=== PATIENT | female | born 2000 | race American Indian/Alaskan Native ===

== ENCOUNTER 2021-06-14 16:06 | Outpatient (CLI) | payer MEDICAID | END 2021-06-14 16:07 | disposition home or self-care (01) | LOC: LAB 16:06 | PROVIDERS: ATTEND Obstetrics & Gynecology | DX: O26.893 Other specified pregnancy related conditions, third trimester (principal); Z67.41 Type O blood, Rh negative; Z3A.28 28 weeks gestation of pregnancy | CPT/HCPCS: 86850; 86900; 86901; 96372; J2790 ==

== ENCOUNTER 2021-08-18 05:08 | Outpatient (CLI) | payer MEDICAID ==
[2021-08-18 06:09] VITALS: BP 125/70
--- NOTE | 2021-08-18 07:30 | Ultrasound Report ---
ULTRASOUND OBSTETRIC LIMITED INDICATION / CLINICAL INFORMATION: Labor pain, 37 weeks. Clinical Gestational Age (GA) in weeks, days: 37 weeks 1 day TECHNIQUE: Transabdominal. COMPARISON: Limited OB ultrasound 08/03/2021 FINDINGS: HEART RATE (beats per minute): 148 AMNIOTIC FLUID INDEX (cm) = 18.0 (normal = 7-24 cm) PRESENTATION: Cephalic. Biparietal Diameter = 9.3 cm = 38, 0 weeks, days Head Circumference = 33.8 cm = 38, 6 weeks, days Abdominal Circumference = 31.6 cm = 35, 4 weeks, days Femur Length = 6.9 cm = 35, 3 weeks, days Average Ultrasound Age (AUA) = 37, 0 weeks, days Anterior placenta, grade 2. Estimated weight 2855 g with growth percentile at 30%. ADDITIONAL FINDINGS: None. IMPRESSION: 1. Single live intrauterine fetus at 37 weeks 0 days. Estimated weight 2855 g. Signer Name: Lavell Florez II, MD Signed: 08/18/2021 7:25 AM Workstation Name: [id number]
[2021-08-18] MEDS ORDERED: MORPHINE 2 MG/1 ML INJ IM ONE (07:57)
[2021-08-18] MEDS ORDERED: MORPHINE 10 MG/1 ML INJ IM ONE (09:00)
== END 2021-08-18 08:51 | disposition home or self-care (01) ==
LOC: TRG 05:08 → APU 05:09 → TRG 08:51
PROVIDERS: ATTEND Obstetrics & Gynecology Gynecology
DX: Z34.93 Encounter for supervision of normal pregnancy, unspecified, third trimester (principal); Z3A.37 37 weeks gestation of pregnancy
CPT/HCPCS: 76816; Q0177

== ENCOUNTER 2021-09-08 01:11 | Inpatient (IN) | payer MEDICAID ==
[2021-09-08] MEDS ORDERED: LACTATED RINGERS 1,000 ML ONE (01:54)
[2021-09-08] MEDS ORDERED: MINERAL OIL 30 ML ORAL LIQD PO PRN (03:15)
[2021-09-08] MEDS ORDERED: ePHEDrine SULFATE 50 MG/1 ML INJ IV PRN ×2 (03:15→13:00)
[2021-09-08] MEDS ORDERED: OXYTOCIN 10 UNIT/1 ML INJ IM PRN (03:15)
[2021-09-08] MEDS ORDERED: LIDOCAINE (2%) 20 MG/1 ML VIAL 20 ML MDV INFILTRATI ONE (03:15)
[2021-09-08] MEDS ORDERED: LOPERAMIDE 2 MG CAP PO PRN (03:15)
[2021-09-08] MEDS ORDERED: miSOPROStol 200 MCG TAB PR PRN (03:15)
[2021-09-08] MEDS ORDERED: CARBOPROST TROMETHAMINE 250 MCG/1 ML INJ IM PRN (03:15)
[2021-09-08] MEDS ORDERED: METHYLERGONOVINE MALEATE 0.2 MG/ML VIAL IM PRN (03:15)
[2021-09-08] MEDS ORDERED: TERBUTALINE 1 MG/1 ML INJ SUB-Q PRN ×2 (03:15→05:10)
[2021-09-08 03:30] LABS: Hematocrit 34.5 % (30.3-42.9); Hemoglobin 11.6 gm/dl (10.1-14.3); Mean Corpuscular HGB Conc 34 % (30-34); Mean Corpuscular Volume 79 fl (79-97); Platelet Count 235 K/mm3 (140-440); Red Blood Count 4.38 M/mm3 (3.65-5.03); Red Cell Distribution Width 18.7 % (13.2-15.2)
[2021-09-08] MEDS ORDERED: OXYTOCIN DRIP 30 UNITS/500 ML BAG IV SCH ×3 (04:00→11:00)
[2021-09-08] MEDS ORDERED: BUTORPHANOL 2 MG/1 ML INJ IV PRN ×3 (04:35→05:10)
[2021-09-08] MEDS ORDERED: fentaNYL 100 MCG/2 ML INJ IV PRN (04:35)
[2021-09-08] MEDS ORDERED: ACETAMINOPHEN 325 MG TAB PO PRN ×2 (04:35→05:44)
[2021-09-08] MEDS ORDERED: LACTATED RINGERS 1,000 ML IV SCH (05:15)
[2021-09-08] MEDS ORDERED: fentaNYL 100 MCG/2 ML INJ ONE (05:29)
--- NOTE | 2021-09-08 05:31 | History and Physical Report ---
History of Present Illness Date of examination: 09/08/21 Date of admission: 09/08/2021 Chief complaint: Contractions History of present illness: 21 y/o at 40-1/7 weeks presents to OBT reporting CTX q 2-3 min that are regular and painful. No VB or LOF. Good FM. In OBT, cervix was 2/thick/-4 --> 3/50%/-4. She declines therapeutic rest with morphine sulfate IM. She is admitted to L&D in early labor for augmentation. Past History Past Medical History: no pertinent history Past Surgical History: appendectomy Family/Genetic History: none Social history: no significant social history - Obstetrical History Expected Date of Delivery: 09/07/21 Actual Gestation: 40 Week(s) 1 Day(s) : 1 Para: 0 Hx # Term Pregnancies: 0 Medications and Allergies Allergies Allergy/AdvReac Type Severity Reaction Status Date / Time No Known Allergies Allergy Verified 08/03/21 13:35 Home Medications Medication Instructions Recorded Confirmed Last Taken Type Nitrofurantoin [place]/M-Cryst 100 mg PO Q12HR 7 Days #14 capsule 08/03/21 Unknown Rx [Macrobid CAP] Active Meds: Active Medications Butorphanol Tartrate (Butorphanol 2 Mg/1 Ml Inj) 2 mg IV Q2H PRN PRN Reason: Pain , Severe (7-10) Butorphanol Tartrate (Butorphanol 2 Mg/1 Ml Inj) 1 mg IV Q2H PRN PRN Reason: Pain, Moderate(4-6) LABOR PAIN Carboprost Tromethamine (Carboprost Tromethamine 250 Mcg/1 Ml Inj) 250 mcg IM ONCE PRN PRN Reason: Uterine Bleeding Ephedrine Sulfate (Ephedrine Sulfate 50 Mg/1 Ml Inj) 10 mg IV Q2M PRN PRN Reason: Hypotension Fentanyl (Fentanyl 100 Mcg/2 Ml Inj) 100 mcg IV Q2H PRN PRN Reason: Pain,Severe (7-10) LABOR PAIN Oxytocin/Sodium Chloride (Pitocin/Ns 30 Unit/500ml) 30 units in 500 mls @ 2 mls/hr IV TITR DANIEL; Protocol Lactated Ringer's (Lactated Ringers) 1,000 mls @ 125 mls/hr IV DIRECT DANIEL Oxytocin/Sodium Chloride (Pitocin/Ns 30 Unit/500ml) 30 units in 500 mls @ 40 mls/hr IV TITR DANIEL; Protocol Ampicillin Sodium (Ampicillin/Ns 1 Gm/50 Ml) 1 gm in 50 mls @ 100 mls/hr IV Q4H DANIEL; Protocol Loperamide HCl (Loperamide 2 Mg Cap) 2 mg PO ONCE PRN PRN Reason: give with Hemabate Methylergonovine Maleate (Methylergonovine Maleate 0.2 Mg/Ml Vial) 0.2 mg IM ONCE PRN PRN Reason: Uterine Bleeding Mineral Oil (Mineral Oil 30 Ml Oral Liqd) 30 ml PO QHS PRN PRN Reason: Constipation Misoprostol (Misoprostol 200 Mcg Tab) 800 mcg NH ONCE PRN PRN Reason: Uterine Bleeding Oxytocin (Oxytocin 10 Unit/1 Ml Inj) 10 unit IM ONCE PRN PRN Reason: Uterine Bleeding Terbutaline Sulfate (Terbutaline 1 Mg/1 Ml Inj) 0.25 mg SUB-Q ONCE PRN PRN Reason: Hyperstimulation/Hypertonicity Review of Systems All systems: negative - Vital Signs Vital signs: Vital Signs Pulse Pulse Ox 82 100 09/08/21 01:40 09/08/21 01:40 Temp Pulse Resp BP Pulse Ox 98.1 F 90 18 111/59 100 09/08/21 01:41 09/08/21 05:20 09/08/21 01:41 09/08/21 02:40 09/08/21 05:20 - Physical Exam Breasts: Positive: normal Cardiovascular: Regular rate Lungs: Positive: Normal air movement Abdomen: Positive: normal appearance Genitourinary (Female): Positive: normal external genitalia Vulva: both: normal Vagina: Positive: normal moisture Uterus: Positive: normal size Adnexa: both: normal Anus/Rectum: Positive: normal perianal skin Deep Tendon Reflex Grade: Normal +2 - Obstetrical FHR: category 1 Uterine Contraction Monitor Mode: External Cervical Dilatation: 3 Cervical Effacement Percentage: 50 station: -4 Uterine Contraction Frequency (min): 3 Uterine Contraction Pattern: Regular Uterine Contraction Intensity: Moderate Results Result Diagrams: 09/08/21 02:25 Abnormal lab results 09/08/21 Range/Units 02:25 WBC 12.9 H (4.5-11.0) K/mm3 MCH 27 L (28-32) pg RDW 18.7 H (13.2-15.2) % All other labs normal. Assessment and Plan - Patient Problems (1) 40 weeks gestation of Current Visit: Yes Status: Acute Plan to address problem: care is up-to-date. GBS (+). (2) Postmaturity , 40-42 weeks gestation Current Visit: Yes Status: Acute Plan to address problem: Admit to L&D. Augment labor. (3) Group B Streptococcus carrier, +RV culture, currently Current Visit: Yes Status: Acute Plan to address problem: Rx PCN per 2010 CDC MMWR recommendations. (4) Labor abnormality, antepartum Current Visit: Yes Status: Acute Plan to address problem: Admit to L&D. Augment with Pitocin. AROM after antibiotics.
[2021-09-08] MEDS ORDERED: NalbUPHINE 10 MG/1 ML INJ IV PRN (05:44)
[2021-09-08] MEDS: fentaNYL 100 MCG/2 ML INJ IV PRN ×3 (05:54→12:40)
[2021-09-08] MEDS ORDERED: PENICILLIN G POTASSIUM 5 MIL.UNITS in SODIUM CHLORIDE 0.9% 50 ML IV ONE (06:00)
--- NOTE | 2021-09-08 06:29 | Ultrasound Report ---
US OB follow up INDICATION / CLINICAL INFORMATION: presentation, EFW, DANYA COMPARISON: Follow-up OB ultrasound 08/18/2021 TECHNIQUE: Using a transcutaneous probe, multiple grayscale, color Doppler, and spectral Doppler imag es of the uterus and fetus were captured and stored. FINDINGS: Clinical gestational age 40 weeks 1 day. Single cephalic fetus heart rate 137 bpm. Amniotic fluid index within normal limits measuring 12 cm. Biparietal Diameter = 10.11 cm = 41, 5 weeks, days Head Circumference = 33.08 cm = 37, 5 weeks, days Abdominal Circumference = 33.8 cm = 37, 5 weeks, days Femur Length = 7.68 cm = 39, 2 weeks, days Average Ultrasound Age (AUA) = weeks, days Estimated weight = 2538 g. IMPRESSION: 1. Single fetus heart rate 137 bpm with normal DANYA and estimated weight is 2538 g. Signer Name: Lavell Florez II, MD Signed: 09/08/2021 6:24 AM Workstation Name: [id number]
[2021-09-08] MEDS ORDERED: ONDANSETRON 4 MG/2 ML INJ ONE (08:01)
[2021-09-08] MEDS ORDERED: ONDANSETRON 4 MG/2 ML INJ IV PRN (08:30)
--- NOTE | 2021-09-08 09:58 | Event Note ---
Date: 09/08/21 pt evaluated with FHR not recording well on monitor. pt just voided and AROM done using FSE, meconium fluid moderate amount and same thin, pelvic /-2 and bulging bag with ctx down to +1; AROM done with FSE after hook failed. Pt just received IV pain med and declines epidural at this time. Will augment with pitocin and adjust PCN dose to 3mu every 4hr instead of 2.5. Expect . FHR category I now. Ctx every 3mins
[2021-09-08] MEDS ORDERED: AMPICILLIN/NS 1 GM/50 ML 1 GM/50 ML BAG IV SCH (10:00)
[2021-09-08] MEDS ORDERED: PENICILLIN G POTASSIUM 2.5 MIL.UNITS in SODIUM CHLORIDE 0.9% 50 ML IV SCH (10:00)
--- NOTE | 2021-09-08 12:50 | Anesthesia Consultation ---
Anesthesia Consult and Med Hx Date of service: 09/08/21 - Airway Anesthetic Teeth Evaluation: Good ROM Head & Neck: Adequate Mental/Hyoid Distance: Adequate Mallampati Class: Class II Intubation Access Assessment: Probably Good - Pulmonary Exam CTA: Yes - Cardiac Exam Cardiac Exam: RRR - Pre-Operative Health Status ASA Pre-Surgery Classification: ASA2 Proposed Anesthetic Plan: Epidural - Pulmonary Hx Asthma: No COPD: No Hx Pneumonia: No - Cardiovascular System Hx Hypertension: No - Central Nervous System Hx Seizures: No Hx Psychiatric Problems: No - Endocrine Hx Renal Disease: No Hx End Stage Renal Disease: No Hx Hypothyroidism: No Hx Hyperthyroidism: No - Hematic Hx Anemia: No Hx Sickle Cell Disease: No - Other Systems Hx Alcohol Use: No
[2021-09-08] MEDS: LACTATED RINGERS 1,000 ML IV SCH ×2 (12:51→22:49)
[2021-09-08] MEDS ORDERED: NALOXONE 2 MG/2 ML INJ IV PRN (13:00)
--- NOTE | 2021-09-08 13:19 | Progress Note ---
Labor Epidural - Labor Epidural Start Time: 13:08 Stop Time: 13:15 Performed by:: MARTA NUGENT Procedure: Patient is requesting epidural for labor pain. H&P, and labs reviewed. Procedure explained, questions answered, consent obtained. Patient in sitting position with blood pressure cuff and pulse ox on and working. Timeout performed immediately before start of procedure. Sterile Chloraprep prep/drape. 3 mL 1% lidocaine skin wheal at L[3]-L[4]. 17-gauge tuohy epidural needle advanced to [id number] with saline at [7] cm. 25-gauge spinal needle advanced until clear, free-flowing CSF. Intrathecal dexmedetomidine [5] mcg administered and needle removed. Epidural catheter advanced to [12] cm, negative aspiration for blood and csf, negative test dose 3 ml 1.5% lidocaine with epinephrine. Sterile sponge and tegaderm applied, followed by tape reinforcement. Patient tolerated procedure well. SRNA
[2021-09-08] MEDS: fentaNYL-BUPIV 2 MCG/ML-0.125% 200 MCG/100 ML BAG EPIDURAL SCH ×2 (13:33→21:09)
[2021-09-08] MEDS: PENICILLIN G POTASSIUM 3 MIL.UNITS in SODIUM CHLORIDE 0.9% 50 ML IV SCH ×2 (16:01→20:03)
--- NOTE | 2021-09-08 18:01 | Event Note ---
Date: 09/08/21 SVE /-1. IUPC inserted without difficulty. Category 1 FHR tracing. Patient comfortable with epidural.
--- NOTE | 2021-09-08 21:43 | Event Note ---
Date: 09/08/21 SVE 7/-1, OP position. Patient positioned in right lateral position.
[2021-09-08] MEDS ORDERED: BUPIVACAINE/PF (0.25%) 2.5 MG/ML 10 ML VIAL INFILTRATI ONE (21:46)
--- NOTE | 2021-09-08 22:29 | Event Note ---
Date: 09/08/21 Amnioinfusion ordered for variable FHR decelerations. Normal FHR baseline rate and moderate variability. Patient positioned in lateral position, Pitocin turned off, and oxygen applied per face mask at 10 LPM.
[2021-09-08] MEDS ORDERED: SODIUM CHLORIDE 0.9% 1000 ML 1,000 ML VG SCH (22:30)
[2021-09-09] MEDS ORDERED: MINERAL OIL 30 ML ORAL LIQD ONE ×2 (00:23→01:39)
[2021-09-09] MEDS ORDERED: HYDROcodone/ACETAMINOPHEN 5-325 MG TAB PO PRN ×2 (04:00→06:05)
[2021-09-09] MEDS ORDERED: IBUPROFEN 800 MG TAB PO PRN (04:00)
[2021-09-09] MEDS ORDERED: diphenhydrAMINE 25 MG CAP PO PRN (06:05)
[2021-09-09] MEDS ORDERED: MAGNESIUM HYDROXIDE (MOM) ORAL LIQD UDC PO PRN (06:05)
[2021-09-09] MEDS ORDERED: LANOLIN/ZINC/DIMETHICONE (LANSINOH) 7 GM TP PRN (06:05)
--- NOTE | 2021-09-09 06:08 | Procedure Note ---
OB Delivery Note - Delivery Date of Delivery: 09/09/21 Surgeon: NORA GONG Estimated blood loss: 500cc - Vaginal Delivery presentation: vertex Delivery position: OA Intrapartum events: meconium Delivery induction: oxytocin Delivery augmentation: rupture of membranes Delivery monitor: external FHT, external uterine, internal uterine Route of delivery: Delivery placenta: spontaneous Delivery cord: nuchal cord, 3 umbilical vessels Episiotomy: none Delivery laceration: 2nd degree Delivery repair: vicryl Anesthesia: epidural Delivery comments: Spontaneous vaginal delivery at 01:44 of liveborn female infant weighing 3.28 kg over second degree perineal laceration with apgars of 8/9. Epidural anesthesia. Thin meconium stained amniotic fluid; NICU present at . was atraumatic. Nuchal cord times 1, manually reduced. Baby placed skin to skin with mom immediately after delivery. Baby suctioned with bulb syringe and dried with warm blankets. Spontaneous cry and respirations. 3 vessel cord double clamped and cut and baby taken to radiant warmer for further suctioning. Cord blood obtained. Spontaneous delivery of intact placenta and membranes at 01:46. Pitocin to IV fluids after delivery of placenta. Fundus firm and midline at umbilicus. EBL 500 cc. Second degree perineal laceration and vaginal laceration repaired with 2-0 vicryl in usual sterile fashion. No other lacerations noted. Vaginal sweep negative. Sponge count correct. Mother and baby stable in birthing room.
[2021-09-09] MEDS: WITCH HAZEL/ GLYCERIN PAD TP PRN (06:49)
[2021-09-09] MEDS ORDERED: IBUPROFEN 800 MG TAB PO SCH (07:00)
[2021-09-09] MEDS: DOCUSATE SODIUM 100 MG CAP PO SCH ×2 (09:19→09:22)
[2021-09-09] MEDS: oxyCODONE /ACETAMINOPHEN 5-325MG TAB PO PRN ×3 (09:20→20:23)
[2021-09-09] MEDS ORDERED: SODIUM CHLORIDE 0.9% 1000 ML 1,000 ML IV SCH (09:45)
--- NOTE | 2021-09-09 09:49 | Post Anesthesia Evaluation ---
- Post Anesthesia Evaluation Patient Participated: Yes Airway Patent: Yes Stable Respiratory Function: Yes Nausea/Vomiting: No Temp > 96.8F: Yes Pain Manageable: Yes Adequeate Hydration: Yes Anesthesia Complications: No Block Receding Appropriately: Yes
[2021-09-09] MEDS ORDERED: KETOROLAC 30 MG/1 ML INJ IV ONE (16:27)
[2021-09-09 17:04] LABS: Hemoglobin 10.9 gm/dl (10.1-14.3); Mean Corpuscular HGB Conc 33 % (30-34); Mean Corpuscular Volume 79 fl (79-97); Platelet Count 218 K/mm3 (140-440); Red Blood Count 4.19 M/mm3 (3.65-5.03); Red Cell Distribution Width 18.9 % (13.2-15.2)
[2021-09-10] MEDS: WITCH HAZEL/ GLYCERIN PAD TP PRN (00:07)
[2021-09-10] MEDS: DOCUSATE SODIUM 100 MG CAP PO SCH ×3 (00:07→23:12)
[2021-09-10] MEDS: oxyCODONE /ACETAMINOPHEN 5-325MG TAB PO PRN ×5 (01:26→23:12)
--- NOTE | 2021-09-10 10:46 | Progress Note ---
Assessment and Plan A: day 1 S/P . P: Repeat CBC is in for noon today. If CBC is OK, plan is to discharge patient home later this evening or tomorrow morning. Iron supplement ordered. Patient to ambulate. Subjective - Subjective Date of service: 09/10/21 Principal diagnosis: day 1 S/P Patient reports: appetite normal, voiding normally, pain well controlled, flatus, ambulating normally, no dizzy ambulation, no nauseated [place]: doing well Objective - Vital Signs Latest vital signs: Vital Signs Temp Pulse Resp BP BP Pulse Ox Pulse Ox 09/10/21 08:53 96 09/10/21 07:36 98.4 F 73 18 126/75 96 09/10/21 03:26 18 09/10/21 01:26 18 09/10/21 01:10 98.3 F 85 16 119/77 100 09/09/21 21:23 18 09/09/21 20:23 20 09/09/21 20:00 100 09/09/21 15:20 98.2 F 93 H 18 116/75 98 09/09/21 11:16 98.2 F 86 18 115/55 97 Intake and Output 09/09/21 09/10/21 09/10/21 22:59 07:59 15:59 Intake Total Balance Intake: IV ceFAZolin 2 GM In NaCl 0. 9% 100 ml @ 200 mls/hr IV Q8H [facility] Rx#:[id number] Oral Intake, Free Water Other: Total, Intake Amount # Voids Void - Exam Cardiovascular: Present: Regular rate, No murmurs Lungs: Present: Clear to auscultation Abdomen: Present: normal appearance, soft. Absent: distention, tenderness, guarding, rigidity Uterus: Present: normal, firm, fundal height below umbilicus (fundus firm and midline at 1 FB below umbilicus). Absent: bogginess, tenderness Extremities: Absent: tenderness, edema - Labs Labs: Abnormal lab results 09/09/21 Range/Units 16:36 WBC 15.8 H (4.5-11.0) K/mm3 MCH 26 L (28-32) pg RDW 18.9 H (13.2-15.2) %
[2021-09-10] MEDS: FERROUS SULFATE 325 MG TAB PO SCH (13:42)
[2021-09-10 16:14] LABS: Basophils % (Auto) 0.4 % (0.0-1.8); Eosinophils # (Auto) 0.3 K/mm3 (0.0-0.4); Eosinophils % (Auto) 2.9 % (0.0-4.3); Hematocrit 32.2 % (30.3-42.9); Hemoglobin 10.2 gm/dl (10.1-14.3); Lymphocytes # (Auto) 1.7 K/mm3 (1.2-5.4); Lymphocytes % (Auto) 14.2 % (13.4-35.0); Mean Corpuscular HGB Conc 32 % (30-34); Mean Corpuscular Volume 79 fl (79-97); Monocytes # (Auto) 0.8 K/mm3 (0.0-0.8); Monocytes % (Auto) 7.2 % (0.0-7.3); Platelet Count 223 K/mm3 (140-440); Red Blood Count 4.05 M/mm3 (3.65-5.03); Red Cell Distribution Width 18.3 % (13.2-15.2)
[2021-09-10] MEDS ORDERED: BENZOCAINE/MENTHOL 20/0.5% TOP SPRAY 56 GM TP PRN (20:09)
[2021-09-10] MEDS ORDERED: BENZOCAINE 20% TOP SPRAY 0.5 ML UNIT DOSE MM NR (21:00)
[2021-09-11] MEDS: oxyCODONE /ACETAMINOPHEN 5-325MG TAB PO PRN ×4 (06:16→18:07)
--- NOTE | 2021-09-11 07:04 | Progress Note ---
Assessment and Plan A: day 2 S/P . Anemia.] P: Discharge patient home today. Discussed with patient discharge instructions and warning signs. Patient to continue taking her vitamin and iron at home. Advised patient to avoid intercourse, lifting, housework. Advised patient to follow up at [facility] in 6 weeks. Patient voiced understanding of instructions. Subjective - Subjective Date of service: 09/11/21 Principal diagnosis: day 2 S/P Patient reports: appetite normal, voiding normally, pain well controlled, flatus, ambulating normally, no dizzy ambulation, no nauseated : doing well Objective - Vital Signs Latest vital signs: Vital Signs Temp Pulse Resp BP BP Pulse Ox Pulse Ox 09/11/21 06:16 20 09/11/21 00:16 98.0 F 70 18 120/68 100 09/11/21 00:12 18 09/10/21 23:12 20 09/10/21 20:15 18 09/10/21 20:00 100 09/10/21 19:15 20 09/10/21 16:09 98.9 F 80 18 116/72 97 09/10/21 08:53 96 09/10/21 07:36 98.4 F 73 18 126/75 96 Intake and Output 09/10/21 09/10/21 09/11/21 15:59 23:59 07:59 Intake Total 440 620 Balance 440 620 Intake: Oral 440 200 Intake, Free Water 420 Other: Total, Intake Amount 120 200 # Voids Void 1 1 - Exam Cardiovascular: Present: Regular rate, No murmurs Lungs: Present: Clear to auscultation Abdomen: Present: normal appearance, soft. Absent: distention, tenderness, guarding, rigidity Uterus: Present: normal, firm, fundal height below umbilicus (fundus firm and midline at 2 FB below umbilicus). Absent: bogginess, tenderness Extremities: Absent: tenderness, edema - Labs Labs: Abnormal lab results 09/10/21 Range/Units 15:39 WBC 11.8 H (4.5-11.0) K/mm3 MCH 25 L (28-32) pg RDW 18.3 H (13.2-15.2) % Seg Neutrophils % 75.3 H (40.0-70.0) % Seg Neutrophils # 8.9 H (1.8-7.7) K/mm3
--- NOTE | 2021-09-11 07:07 | Discharge Summary ---
Providers - Providers Date of Admission: 09/08/21 01:12 Date of discharge: 09/11/21 Attending physician: RICARDO ASHTON MD Primary care physician: RICARDO ASHTON MD Hospitalization Reason for admission: active labor Delivery: Laceration: 2nd degree Other procedures: none complications: none Discharge diagnosis: IUP at term delivered [place] baby: female Pertinent studies: Term delivered Hospital course: Stable hospital course Condition at discharge: Good Disposition: 01 HOME / SELF CARE / HOMELESS - Discharge Diagnoses (1) Term delivered Status: Acute Plan - Provider Discharge Summary Activity: routine, no sex for 6 weeks, no heavy lifting 4 weeks, no strenuous exercise Diet: routine Instructions: routine Additional instructions: Please continue taking your vitamin and iron supplement at home. Follow up at [facility] in 6 weeks. * Fever > 100.5 * Heavy vaginal bleeding ( >1 pad per hour) * Severe persistent headache * Shortness of breath * Reddened, hot, painful area to leg or breast - Follow up plan Follow up: NORA GONG CNM [Advanced Practice Nurse] - 6 Weeks Forms: [facility] Discharge Summary
[2021-09-11] MEDS: DOCUSATE SODIUM 100 MG CAP PO SCH (10:12)
[2021-09-11] MEDS: FERROUS SULFATE 325 MG TAB PO SCH (10:12)
[2021-09-11 18:15] VITALS: BP 110/71
[2021-09-12] MEDS: WITCH HAZEL/ GLYCERIN PAD TP PRN (09:43)
== END 2021-09-11 19:20 | disposition home or self-care (01) | DRG 775 ==
LOC: TRG 01:11 → APU 01:12 → LD 01:12 → TRG 04:35 → OB 09-09 04:25
PROVIDERS: ADMIT Obstetrics & Gynecology Gynecology; ATTEND Obstetrics & Gynecology Gynecology
PROC: 3E0334Z Introduction of Serum, Toxoid and Vaccine into Peripheral Vein, Percutaneous Approach (ICD-10-PCS; 2021-09-08)
PROC: 10E0XZZ Delivery of Products of Conception, External Approach (ICD-10-PCS; principal; 2021-09-09)
PROC: 0KQM0ZZ Repair Perineum Muscle, Open Approach (ICD-10-PCS; 2021-09-09)
PROC: 10907ZC Drainage of Amniotic Fluid, Therapeutic from Products of Conception, Via Natural or Artificial Opening (ICD-10-PCS; 2021-09-09)
PROC: 3E033VJ Introduction of Other Hormone into Peripheral Vein, Percutaneous Approach (ICD-10-PCS; 2021-09-09)
PROC: 3E0R3BZ Introduction of Anesthetic Agent into Spinal Canal, Percutaneous Approach (ICD-10-PCS; 2021-09-09)
PROC: 00HU33Z Insertion of Infusion Device into Spinal Canal, Percutaneous Approach (ICD-10-PCS; 2021-09-09)
DX: O77.0 Labor and delivery complicated by meconium in amniotic fluid (principal); O99.824 Streptococcus B carrier state complicating childbirth; O48.0 Post-term pregnancy; Z3A.40 40 weeks gestation of pregnancy; O69.81X0 Labor and delivery complicated by cord around neck, without compression, not applicable or unspecified; O70.1 Second degree perineal laceration during delivery; Z37.0 Single live birth
CPT/HCPCS: 36415; 76816; 85025; 85027; 85461; 86850; 86900; 86901; G0378; J3490; Q0162; J0595; J0690; J1885; J2405; J2540; J2590; J2790; J3010; J7030; J7120; U0003